=== PATIENT | male | born 1970 | race Caucasian/White ===

== ENCOUNTER 2023-02-20 14:50 | Inpatient (IN) | payer OTHER ==
[2023-02-20 15:42] VITALS: BMI 19.3
[2023-02-20] MEDS ORDERED: POLYETHYLENE GLYCOL (HEALTHYLAX) 3350 17 GM PACKET PO PRN (18:25)
[2023-02-20] MEDS ORDERED: MAGNESIUM HYDROX 2400MG/30ML ORAL SUSPENSION 30 ML CUP PO PRN (18:25)
[2023-02-20] MEDS ORDERED: ACETAMINOPHEN 325 MG TABLET (FP) PO PRN (18:25)
[2023-02-20] MEDS ORDERED: NALOXONE HCL (KLOXXADO) 8 MG SPRAY NS PRN (18:25)
[2023-02-20] MEDS ORDERED: NALOXONE HCL 0.4 MG/ML VIAL IM PRN (18:25)
[2023-02-20] MEDS ORDERED: LOPERAMIDE HCL 2 MG CAPSULE PO PRN (18:25)
[2023-02-20] MEDS ORDERED: BISMUTH SUBSALICYLATE 524 MG/30 ML PO PRN (18:25)
[2023-02-20] MEDS ORDERED: BENZONATATE 200 MG CAPSULE PO PRN (18:25)
[2023-02-20] MEDS ORDERED: BENZOCAINE/MENTHOL (CHLORASEPTIC ) LOZENGE MM PRN (18:25)
[2023-02-20] MEDS ORDERED: DICYCLOMINE HCL 10 MG CAPSULE PO PRN (18:25)
[2023-02-20] MEDS ORDERED: IBUPROFEN 400 MG TABLET (FP) PO PRN (18:25)
[2023-02-20] MEDS ORDERED: guaiFENesin 600 MG TABLET.ER (FP) PO PRN (18:25)
[2023-02-20] MEDS ORDERED: NICOTINE POLACRILEX 2 MG GUM BUC PRN (18:25)
[2023-02-20] MEDS ORDERED: IBUPROFEN 600 MG TABLET (FP) PO PRN (18:25)
[2023-02-20] MEDS ORDERED: ONDANSETRON *ODT* 4 MG TABLET SL PRN (18:25)
[2023-02-20] MEDS ORDERED: MAG HYDROX/AL HYDROX/SIMETH 30 ML UNIT-DOSE CUP PO PRN (18:25)
[2023-02-20] MEDS: THIAMINE HCL 100 MG TABLET (FP) PO SCH (22:34)
[2023-02-20] MEDS: MELATONIN 5 MG TABLETS PO SCH (22:34)
[2023-02-20] MEDS: METHOCARBAMOL 500 MG TABLET PO PRN (22:34)
[2023-02-20] MEDS: hydrOXYzine PAMOATE 25 MG CAPSULE (FP) PO PRN (22:34)
[2023-02-20] MEDS ORDERED: chlordiazePOXIDE HCL 25 MG CAPSULE PO PRN (22:41)
[2023-02-20] MEDS ORDERED: cloNIDine HCL 0.1 MG TABLET PO PRN (22:44)
[2023-02-20] MEDS ORDERED: BUPRENORPHINE HCL 150 MCG, BUPRENORPHINE HCL 75 MCG BC ONE (22:46)
[2023-02-20] MEDS: chlordiazePOXIDE HCL 25 MG CAPSULE PO SCH (23:17)
[2023-02-21] MEDS: chlordiazePOXIDE HCL 25 MG CAPSULE PO SCH ×4 (05:16→22:27)
[2023-02-21] MEDS: BUPRENORPHINE HCL 150 MCG, BUPRENORPHINE HCL 75 MCG BC SCH ×2 (05:18→17:38)
[2023-02-21 08:26] LABS: HEMATOCRIT 41.7 % (35.4-49); HEMOGLOBIN 13.7 GM/dL (11.7-16.9); MCH 30.6 pg (25.7-33.7); MCHC 32.8 g/dl (32.0-35.9); MEAN CELL VOLUME 93.3 fl (80-96); PLATELET COUNT 241 10^3/uL (134-434); RBC 4.47 M/mm3 (4.00-5.60); RDW 12.6 % (11.9-15.9); WHITE BLOOD COUNT 4.3 K/mm3 (4.0-10.0)
[2023-02-21 08:30] LABS: CHLORIDE 101 mmol/L (98-107); POTASSIUM 3.8 mmol/L (3.5-5.1); SODIUM 138 mmol/L (136-145)
[2023-02-21 08:39] LABS: CALCIUM 9.2 mg/dL (8.5-10.1)
[2023-02-21 08:40] LABS: ALBUMIN 3.2 g/dl (3.4-5.0); ANION GAP 4 mmol/L (4-13); BLOOD UREA NITROGEN 9.3 mg/dL (7-18); CO2 33 mmol/L (21-32); GLUCOSE,RANDOM 90 mg/dL (74-106)
[2023-02-21 08:42] LABS: CREATININE 0.6 mg/dL (0.55-1.3)
[2023-02-21 08:43] LABS: SGOT/AST 77 U/L (15-37); SGPT/ALT 65 U/L (13-61)
[2023-02-21 08:44] LABS: BILIRUBIN,TOTAL 1.2 mg/dL (0.2-1); TOT PROT 7.3 g/dl (6.4-8.2)
[2023-02-21 08:46] LABS: ALK PHOS 124 U/L (45-117)
[2023-02-21] MEDS: PRENATAL VITAMINS W/ FOLIC ACID TABLET (FP) PO SCH (10:24)
[2023-02-21] MEDS: MELATONIN 5 MG TABLETS PO SCH (22:27)
[2023-02-21] MEDS: THIAMINE HCL 100 MG TABLET (FP) PO SCH (22:27)
[2023-02-22] MEDS: chlordiazePOXIDE HCL 25 MG CAPSULE PO SCH ×4 (05:37→22:09)
[2023-02-22] MEDS ORDERED: BUPRENORPHINE/NALOXONE 2 MG/0.5 MG FILM PACKET SL ONE (06:00)
[2023-02-22] MEDS: PRENATAL VITAMINS W/ FOLIC ACID TABLET (FP) PO SCH (10:35)
[2023-02-22] MEDS: MELATONIN 5 MG TABLETS PO SCH (22:09)
[2023-02-22] MEDS: METHOCARBAMOL 500 MG TABLET PO PRN (22:09)
[2023-02-22] MEDS: THIAMINE HCL 100 MG TABLET (FP) PO SCH (22:09)
[2023-02-23] MEDS ORDERED: chlordiazePOXIDE HCL 10 MG CAPSULE PO PRN
[2023-02-23] MEDS: BUPRENORPHINE/NALOXONE 4 MG/1 MG FILM PACKET SL SCH ×2 (05:13→18:11)
[2023-02-23] MEDS: chlordiazePOXIDE HCL 10 MG CAPSULE PO SCH ×4 (05:13→22:30)
[2023-02-23] MEDS: PRENATAL VITAMINS W/ FOLIC ACID TABLET (FP) PO SCH (10:16)
[2023-02-23] MEDS ORDERED: ALBUTEROL SO4 HFA INHALER IH PRN (21:17)
[2023-02-23] MEDS: THIAMINE HCL 100 MG TABLET (FP) PO SCH (22:30)
[2023-02-23] MEDS: MELATONIN 5 MG TABLETS PO SCH (22:30)
[2023-02-24] MEDS: chlordiazePOXIDE HCL 10 MG CAPSULE PO SCH ×2 (05:31→17:24)
[2023-02-24] MEDS ORDERED: BUPRENORPHINE/NALOXONE 8 MG/2 MG FILM PACKET SL ONE (06:00)
[2023-02-24] MEDS: PRENATAL VITAMINS W/ FOLIC ACID TABLET (FP) PO SCH (10:01)
[2023-02-24] MEDS: THIAMINE HCL 100 MG TABLET (FP) PO SCH (22:16)
[2023-02-24] MEDS: MELATONIN 5 MG TABLETS PO SCH (22:16)
[2023-02-24] MEDS: hydrOXYzine PAMOATE 25 MG CAPSULE (FP) PO PRN (22:17)
[2023-02-25] MEDS ORDERED: chlordiazePOXIDE HCL 10 MG CAPSULE PO ONE (05:00)
[2023-02-25 09:10] VITALS: BP 107/76; PULSE 70; RESP 17; TEMP 98
[2023-02-25] MEDS: PRENATAL VITAMINS W/ FOLIC ACID TABLET (FP) PO SCH (09:10)
== END 2023-02-25 09:23 | disposition home or self-care (01) | DRG 773 ==
LOC: YASAS 14:50 → Y3N 18:40
PROVIDERS: ADMIT Allergy & Immunology; ATTEND Surgery
PROC: HZ2ZZZZ Detoxification Services for Substance Abuse Treatment (ICD-10-PCS; principal; 2023-02-20)
DX: F11.23 Opioid dependence with withdrawal (principal); F10.230 Alcohol dependence with withdrawal, uncomplicated; F17.210 Nicotine dependence, cigarettes, uncomplicated; J30.2 Other seasonal allergic rhinitis
CPT/HCPCS: 36415; 80053; 80307; 85027; 86780; 87635; 93005; 93010